=== PATIENT | female | born 1975 | race Two or more races ===

== ENCOUNTER 2022-04-26 22:28 | Emergency (ER) | payer MEDICAID ==
[~2022-04-26] VITALS: Ht 157.5 cm; Wt 68.2 kg
[2022-04-26 22:35] VITALS: BP 140/65
[2022-04-27] MEDS ORDERED: FLUORESCEIN SOD OPTH TEST STRIP RIGHTEYE ONE
[2022-04-27] MEDS ORDERED: TETRACAINE HCL 0.5% OPTH(EYE) SOLN 4ML RIGHTEYE ONE
== END 2022-04-27 00:20 | disposition home or self-care (01) ==
LOC: ER 22:31
DX: S05.01XA Injury of conjunctiva and corneal abrasion without foreign body, right eye, initial encounter (principal); J45.909 Unspecified asthma, uncomplicated; X58.XXXA Exposure to other specified factors, initial encounter; Y93.89 Activity, other specified; Y92.89 Other specified places as the place of occurrence of the external cause; Y99.8 Other external cause status